=== PATIENT | male | born 2000 | race Caucasian/White ===

== ENCOUNTER 2020-09-27 17:02 | Emergency (ER) | payer SELFPAY ==
[2020-09-27] MEDS ORDERED: Bacitracin 1 PK ONE (17:53)
== END 2020-09-27 17:57 | disposition home or self-care (01) ==
LOC: ERS 17:02
DX: S91.201A Unspecified open wound of right great toe with damage to nail, initial encounter (principal); W22.8XXA Striking against or struck by other objects, initial encounter
CPT/HCPCS: 99283

== ENCOUNTER 2022-05-14 08:36 | Emergency (ER) | payer SELFPAY | END 2022-05-14 10:32 | disposition home or self-care (01) | LOC: ERS 08:36 | DX: J02.9 Acute pharyngitis, unspecified (principal) | CPT/HCPCS: 99282 ==